=== PATIENT | female | born 1980 | race Caucasian/White ===

== ENCOUNTER → 2021-01-30 01:50 | Outpatient (CLI) | payer OTHER, SELFPAY ==
[2021-01-30 19:27] LABS: SARS-CoV-2 RNA PCR Negative
== END ==
PROVIDERS: Visit Provider Obstetrics & Gynecology
DX: Z01.812 Encounter for preprocedural laboratory examination (principal); Z20.822 Contact with and (suspected) exposure to COVID-19
CPT/HCPCS: C9803; U0003; U0005

== ENCOUNTER 2021-02-02 01:54 | Day surgery (SDC) | payer OTHER, SELFPAY ==
[2021-01-26 18:56] VITALS: BMI 37.2
--- NOTE | 2021-01-26 18:57 | PC.NURSE ---
pt states covid positive ,no hospitalization. mild symptoms
[2021-02-02] VITALS (12 sets, daily range): BP systolic 91–125; BP diastolic 59–85; PULSE 54–70; RESP 16–24; TEMP 36.6–36.7; O2SAT 99–100
[2021-02-02] MEDS: ACETAMINOPHEN 500 MG TABLET 1000 MG PO (11:53)
[2021-02-02] MEDS: KETOROLAC 15 MG/ML VIAL (*BKC) IV PUSH (11:56)
[2021-02-02] MEDS: LACTATED RINGERS 1,000 ML 30 ML IV CONT ×2 (11:59→14:37)
--- NOTE | 2021-02-02 12:11 | WPDHPUPDATE1 ---
History and Physical Update Update Date/Time: 02/02/21 12:11 History and Physical has been reviewed, including an updated exam of the patient. There are NO changes in the patient's condition. Risks, benefits, and alternatives have been discussed and questions answered. Patient agrees to proceed with procedure.
--- NOTE | 2021-02-02 12:40 | WPDANESEPPF ---
Anes - Initial Pre Proc Eval Procedure: Operation Date: 02/02/21 13:30 Proposed Procedures p Laparoscopic Bilateral Tubal Sterilization With Fulguration - Duyen Pozo MD s Hysteroscopy with Mine Endometrial Ablation - Duyen Pozo MD Date/Time: 02/02/21 12:40 Surgeon: Duyen Pozo MD Pre Op Diagnosis: Desires Sterilization, abnormal uterine bleeding Patient Data Age: 40 Gender: F Height: 1.78 m Weight: 114.8 kg Last Vital Signs Temp 36.7 C 02/02/21 12:07 Pulse 63 02/02/21 12:07 Resp 16 02/02/21 12:07 BP 123/79 02/02/21 12:07 Pulse Ox 100 02/02/21 12:07 Allergies Allergy/AdvReac Type Severity Reaction Status Date / Time No Known Allergies Allergy Unverified 02/02/21 12:04 Home Medications Medication Instructions Recorded Confirmed Type ergocalciferol (vitamin D2) 1,250 mcg PO DAILY 01/26/21 02/02/21 History fluoxetine 20 mg PO HS 01/26/21 02/02/21 History rh-xjb-YN-Th-Ic-tltzwns-lutein 1 tablet PO DAILY 01/26/21 02/02/21 History [Centrum] naltrexone 50 mg PO DAILY 01/26/21 02/02/21 History polyethylene glycol 3350 [Miralax] 17 g PO DAILY 01/26/21 02/02/21 History polysaccharide iron complex 150 mg PO DAILY 01/26/21 02/02/21 History [Ferrex 150] topiramate 50 mg PO PRN 01/26/21 02/02/21 History vitamin G72-bitrc acid 1 tablet SUBLINGUAL DAILY 01/26/21 02/02/21 History Patient hx anesthesia problems: none Family hx anesthesia problems: none PMFSH Past Medical History Medical History (Updated 02/02/21 @ 12:41 by Ananth Kinsey DO) Anxiety Depression Migraine DAINA (obstructive sleep apnea) Surgical History Surgical History (Updated 02/02/21 @ 12:41 by Ananth Kinsey DO) History of cholecystectomy History of tonsillectomy Social History Social History Smoking status: Former smoker Smoking end date: 08/14/20 Additional smoking assessment comments: smoked for 15 years 1/2ppd cigarettes Drinks per week: 2 Alcohol use details: socially Living arrangements: with family Spiritual care concerns: No Anes - Eval Final PreProcedure Day of Procedure 02/02/21 12:40 Patient weight: obese Heart: regular rate and rhythm Lungs: clear to auscultation and normal air movement Airway: Mallampati scale class II Neurological: alert and oriented Last oral intake: >/= 8 hours ASA classification: III Emergent: no Anesthetic plan: proceed Anesthesia type and monitoring: general ETT and standard monitoring Informed Consent: The patient's anesthetic plan and its attendant risks and benefits were discussed with the patient/family/POA. Questions were solicited and answers provided to the satisfaction of the patient/family/POA.
[2021-02-02] MEDS: BUPIVACAINE/EPINEPHRINE 0.5% 30 ML VIAL INFILTRATE (14:05)
--- NOTE | 2021-02-02 14:33 | PM.PROC ---
Procedure Note - Detailed Date of procedure: 02/02/21 Pre-op diagnosis: Desires Sterilization, abnormal uterine bleeding Post-op diagnosis: same Procedure performed: Laparoscopic bilateral tubal fulguration for sterilization and hysteroscopy with endometrial ablation Description of procedure: Patient was taken to the operating room where general anesthesia was found to be adequate. Nowak catheter placed. A speculum used to visualize the cervix and single toothed tenaculum placed on the anterior lip. Uterine manipulator placed and affixed to the tenaculum. The speculum was removed and attention was turned to the umbilicus which was injected with 0.5% marcaine with epinephrine, incised wtih a scalpel in a previous incision and veres needle used to enter into the peritoneum. Saline drop test was postitve for entry and intraabdominal pressure was -4mmHG. I then insufflated to 15mmHg. A 5mm port was placed with optical entry. The patient was then placed on Trendelenberg. The uterus was elevated and bilateral fallopian tubes were normal as was the ovaries and uterus. A suprapubic port was placed by injecting the skin with 0.5% marcaine with epinephrine, incising with a scalpel and placing a 5mm port with direct visualization. The right fallopian tube was grasp, and cauterized with bipolar kleppenger for the length of 3cm in the mid portion of the tube. Similarly the left fallopian tube was grasp and cauterized with bipolar kleppenger for 3cm in length. Images taken. Pneumoperitoneum was released. Attention was then turned to the cervix again which was visible with the speculum The uterine manipulator removed and the cervix serially dilated with hegar dialors. Uterus sounded to 8.5cm. Uterine cavity measured 4.5cm. The hysteroscope was inserted and the uterus noted to have bilateral tubal ostia visible and no polyps noted. So the Mine was prepped and inserted. Cavity assessment passed and the procedure began for full 120seconds. There were no complications. So hysteroscope again reintroduced to confirm good coverage with ablation. Images taken. Then All instruments were removed from the vagina and tenaculum sites hemostatic. The nowak was removed. The port sites on the abdomen were then removed and closed by tech with 4-0 monocryl in interrupted fashion and sterile dressing placed. The procedure was complete. All sponge lap and needle counts were correct. Anesthesia: GETA Surgeon: Duyen Pozo MD Estimated blood loss (mL): 5 Drains: No Packing: No Pathology: none sent Complications: No immediate complications Condition: stable Disposition: PACU Findings: fluffy endometrium, normal uterus/ovaries/tubes. no intraabdominal adhesions noted
[2021-02-02] MEDS: fentaNYL CITRATE INJ (*CRX) 100 MCG/2 ML VIAL 25 MCG IV PUSH ×3 (15:07→15:27)
[2021-02-02] MEDS: KETOROLAC 30 MG/ML VIAL (*BKC) 15 MG IV PUSH (15:34)
[2021-02-02] MEDS: HYDROmorphone HCL INJ (*CRX) 1 MG/ML SYR 0.5 MG IV PUSH ×2 (15:43→15:51)
== END 2021-02-02 17:00 | disposition home or self-care (01) ==
PROVIDERS: Visit Provider Obstetrics & Gynecology
PROC: (CPT 58671; principal; 2021-02-02 13:30)
PROC: 0U5B8ZZ Destruction of Endometrium, Via Natural or Artificial Opening Endoscopic (ICD-10-PCS; CPT 58563; 2021-02-02 13:30)
DX: Z30.2 Encounter for sterilization (principal); F41.8 Other specified anxiety disorders; G47.33 Obstructive sleep apnea (adult) (pediatric); Z87.891 Personal history of nicotine dependence; E66.9 Obesity, unspecified; Z68.36 Body mass index [BMI] 36.0-36.9, adult; N93.9 Abnormal uterine and vaginal bleeding, unspecified; Z98.1 Arthrodesis status
CPT/HCPCS: 58563; 58670; A9270; J0330; J1100; J1170; J1885; J2250; J2405; J2704; J3010; J7030; J7120